=== PATIENT | female | born 1960 | race Caucasian/White ===

== ENCOUNTER → 2016-12-24 | Outpatient (CLI) | payer BC, OTHER ==
[~2016-12-24] MED LIST: ACET325T96 PO; ASPI81TA28 PO; ATOR10TA88 PO; CHOL100010 PO; CLX/20 PO; DEXT30SU8 PO; DXY100 PO; FRCT/ PO; LEVO25TA5 PO; MONT1TAB5 PO; NALT1TAB14 PO; PROB1TAB16 PO; SULF800T23 PO; ULT50X PO
[2016-12-24 18:18] LABS: THYROID STIMULATING HORMONE 1.37 uIu/ml (0.300-4.500)
== END | disposition home or self-care (01) ==
LOC: C.LABMFLN 14:41
PROVIDERS: ATTEND Family Medicine
DX: E03.9 Hypothyroidism, unspecified (principal); E55.9 Vitamin D deficiency, unspecified

== ENCOUNTER → 2017-02-18 | Outpatient (CLI) | payer BC ==
[~2017-02-18] MED LIST changes: +ATOR10TA82 PO; -ATOR10TA88 PO
[2017-02-18 12:02] LABS: HEMATOCRIT 42.5 % (37-47); MEAN CELL VOLUME 93.2 fL (80-100); MEAN CORPUSCULAR HGB CONC 34.4 g/dl (32-36); MEAN PLATELET VOLUME 9.4 fL (7.4-10.4); PLATELET COUNT 258 K/uL (130-400); RED BLOOD COUNT 4.56 M/uL (4.2-5.4); WHITE BLOOD COUNT 4.59 K/uL (4.8-10.8)
[2017-02-18 12:24] LABS: PARTIAL THROMBOPLASTIN RATIO 1.1; PROTHROMBIN TIME (PATIENT) 11.2 SECONDS (9.0-12.0)
[2017-02-18 12:50] LABS: POTASSIUM 4.2 mmol/L (3.5-5.1)
== END | disposition home or self-care (01) ==
LOC: C.CPL 11:35
PROVIDERS: ATTEND Physician Assistant
DX: Z01.810 Encounter for preprocedural cardiovascular examination (principal)

== ENCOUNTER → 2017-03-05 | Day surgery (SDC) | payer BC ==
[2017-02-20 09:44] VITALS: Ht 157.5 cm; Wt 77.3 kg
[~2017-03-05] VITALS: Ht 157.5 cm; Wt 77.3 kg
[~2017-03-05] MED LIST changes: +ACETAMINOPHEN 325 MG TAB PO PRN; +ATROPINE SULFATE 0.1 MG/ML 5ML SYR IV PRN; +BACITRACIN 50000 UNIT VIAL ONE; +BUPIVACAINE 0.25% 2.5MG/ML PF 10 ML VIAL INFIL ONE; +CEFAZOLIN 2000 MG/60 ML D5W IV SCH; +CEFAZOLIN SOD 1 GM VIAL ONE; +EpHEDrine SULFATE INJ 50 MG/ML AMP IV PRN; +FENTANYL CITRATE INJ 50 MCG/1 ML 2 ML VIAL ONE; +GENTAMICIN SULFATE 40 MG/ML 2 ML VIAL ONE; +GLYCOPYRROLATE INJ 0.2 MG/ML VIAL ONE; +LACTATED RINGER'S 1000ML 1,000 ML IV SCH; +LIDOCAINE HCL 2% 2 ML VIAL (20MG/ML) ONE; +LIDOCAINE/EPINEPHRINE 1% INJ 50 ML VIAL ONE; +METOCLOPRAMIDE HCL INJ 5 MG/ML 2 ML VIAL IV PRN; +MIDAZOLAM HCL 1 MG/ML 2ML VIAL ONE; +NEOSTIGMINE METHYLSULFATE 5 MG/5 ML SYR ONE; +ONDANSETRON INJ 2 MG/ML 2 ML VIAL IV PRN; +ONDANSETRON INJ 2 MG/ML 2 ML VIAL ONE; +OXYCODONE/ACETAMINOPHEN 5-325 TAB PO PRN; +PROPOFOL IV EMULSION 10 MG/ML 20 ML VIAL IV ONE; +SCOPOLAMINE 1.5 MG TDSY TD ONE; +SODIUM CHLORIDE 0.9% 1000ML 1,000 ML IV SCH; +SODIUM CHLORIDE 0.9% INJ 10 ML VIAL ONE; +SODIUM CHLORIDE 5% OP SOLN 15 ML BTL ONE
--- NOTE | 2017-03-05 08:44 | History & Physical Bridge - [place] ---
H&P Re-Evaluation Bridge Note: I have examined the patient, reviewed the History & Physical and in the interval since the performance of the History & Physical I have noted the following changes of clinical significance: No changes noted
--- NOTE | 2017-03-05 11:17 | [facility] Post Operative Brief Note ---
Immediate Operative Summary Operative Date March 05, 2017. Pre-Operative Diagnosis Breast implant ruture Post-Operative Diagnosis same as preop Procedure(s) Performed Bilateral Breast Implant Removal With Capsulectomy Surgeon Dr. Graham Figure Model Surgeon(s) NASIR Gordon Estimated Blood Loss 25ml Findings bilateral breast implant rupture Specimens A: Left Breast ruptured implant, capsule and scar tissue B: Right Breast ruptured implant, capsule and scar tissue Drains SHLOMO x2 Anesthesia general Complication(s) None Disposition Recovery Room / PACU
--- NOTE | 2017-03-05 11:34 | Discharge Instructions ---
Discharge Instructions Date of Service March 05, 2017. Admission Reason for Admission: For Bilat Breast Implant Removal Discharge Discharge Diagnosis / Problem: Breast Implant Rupture Discharge Goals Goal(s): Decrease discomfort Activity Recommendations Activity Limitations: per Instructions/Follow-up section ACTIVITY RECOMMENDATIONS: __Normal activities _x_No bending, lifting or straining __No driving __Driving allowed when you are off pain medications _x_Walking permitted __You should have help at home for ___ days DRESSINGS: __No dressings required _x_Keep dressings dry/in place until first office visit __Remove dressings ___ and leave dressings off __Apply ice ___ days __Remove dressings and reapply garment __Apply antibiotic ointment (Bacitracin, Neosporin, etc) to wounds 3-4 times/ day for 10 days BATHING: _x_Keep dressings dry _x_Sponge bathing permitted __Showering permitted _x_No swimming, hot tubs or soaking in a tub MEDICATIONS: Resume previous medications unless instructed otherwise by your surgeon. _x_Do not use aspirin, Motrin, Advil or Ibuprofen as these may promote bleeding. Please use Tylenol. _x_Prescription(s) provided: Pain medication was provided at your last office visit OTHER INSTRUCTIONS: _x_Record drain output 2-3 times per day SPECIAL CARE INSTRUCTIONS: * It is normal to have a mild fever after surgery. If your temperature is higher than 101.5 degrees F, please call the office at [phone]. * Constipation is a typical side effect of pain medication. An over-the- counter stool softener will help relieve this. * Leaking around surgical drains may occur and should not cause concern. Sometimes these drains become clogged. If this happens, remove the bulb and milk the clot out of the tube, then replace the bulb. * Drainage from wounds after liposuction is normal and should be expected. Garments will become soiled. You should protect furniture and bedding. This drainage should mostly subside within 2-3 days. Leave garments in place unless instructed to remove them. * If you have unusual drainage from a wound or are concerned you have an infection or have any questions or concerns, please call the office at [phone]. FOLLOW UP VISIT: If not already scheduled, please call the office, , when you return home after surgery to schedule an appointment to be seen in __2_ days. . Current Hospital Diet Patient's current hospital diet: Discharge Diet Recommended Diet: Regular Diet Procedures Procedures Performed: Bilateral Breast Implant Removal With Capsulectomy Pending Studies Studies pending at discharge: yes List of pending studies: pathology Medical Emergencies . Who to Call and When: Medical Emergencies: If at any time you feel your situation is an emergency, please call 911 immediately. . Non-Emergent Contact Non-Emergency issues call your: Primary Care Provider, Surgeon . "Provider Documentation" section prepared by Uma Henriquez. . VTE Core Measure Inpt VTE Proph given/why not?: SCD's [place] Drug Monitoring Program Search Results: no issues identified
[2017-03-05] MEDS: FENTANYL CITRATE INJ 50 MCG/1 ML 2 ML VIAL IV PRN ×4 (11:39→12:12)
--- NOTE | 2017-03-05 11:47 | Anesthesia Progress Nt - [facility] ---
Anesthesia Post Op Note Date & Time March 05, 2017 at 11:47 Vital Signs Pain Intensity: 4.0 Vital Signs Past 12 Hours Date Time Temp Pulse Resp B/P Pulse Ox O2 Delivery O2 Flow Rate FiO2 03/05/17 08:14 36.5 62 16 138/90 98 Room Air Notes Mental Status: alert / awake / arousable, participated in evaluation Pt Amnestic to Procedure: Yes Nausea / Vomiting: adequately controlled Pain: adequately controlled Airway Patency, RR, SpO2: stable & adequate BP & HR: stable & adequate Hydration State: stable & adequate Anesthetic Complications: no major complications apparent
[2017-03-05 13:31] VITALS: BP 150/86; PULSE 59; O2SAT 99
--- NOTE | 2017-03-07 12:57 | OPERATIVE REPORT ---
DATE OF OPERATION: 03/05/2017 PREOPERATIVE DIAGNOSIS: Bilateral silicone breast implant rupture. POSTOPERATIVE DIAGNOSIS: Same. PROCEDURE: Removal of bilateral ruptured breast implants with total capsulectomy. SURGEON: Dr. Angela Graham. HEALTH SPECIALIST: Uma Henriquez PA-C. ANESTHESIA: General. COMPLICATIONS: None. INDICATION FOR THE PROCEDURE: The patient is a 56-year-old female who had silicone breast implants placed approximately 30 years ago. She apparently a volunteer for breast MRI and was actually found to have bilateral intracapsular rupture noted. She was referred to me for possible implant removal. Options were discussed and ultimately, the patient elected to proceed with removal of her breast implants with consideration for staged replacement or mastopexy. BRIEF DESCRIPTION OF THE PROCEDURE: Risks, benefits, and alternatives of the procedure were explained to the patient, who agreed and signed consent. She was identified and marked in the preoperative holding area. She was brought to the operating room, where she was positioned supine and placed under anesthesia without incident. Surgical site was prepped and draped sterilely. I began with the left side. 1% lidocaine with epinephrine was used to anesthetize the planned incision. The incision was marked along the inframammary fold and included excision of the prior scar along the inframammary fold. A 15 blade scalpel was used to make the incision. The scar was passed off for pathology. The incision was deepened using electrocautery. Dissection was performed within the subcutaneous plane and breast parenchyma until the implant capsule was identified. The implant was noted to be extremely laterally displaced. The capsule appeared intact without evidence of extracapsular rupture; however, capsule did appear quite thin anteriorly over the implant. Electrocautery was used to dissect in the plane between the capsule and breast parenchyma and ultimately, the posterior aspect of the pectoralis major muscle. I performed as much capsulectomy as I could prior to opening the implanted capsule. Posterior dissection was also undertaken. Ultimately, I was unable to continue to remove the capsule and implant together and therefore, the capsule was incised. Upon incision of the capsule, there was free silicone present. This was manually removed using a lap sponge. Implant shell was removed as well. I was then able to remove the remainder of the capsule using electrocautery. Hemostasis was achieved throughout the dissection. The capsule and implant were passed off. Gloves were changed. Betadine soap was used to irrigate the pocket followed by triple antibiotic irrigation. The wound was examined for hemostasis and packed with lap sponges, which were soaked in antibiotic irrigation and Marcaine. At this point, attention was turned to the right side, where a similar procedure was undertaken. There was also noted to be an intracapsular rupture on the right side as well. Specimen was again passed off. Irrigation was performed. The wound was packed. I returned to the left side. A final inspection for hemostasis was undertaken. A 15-Iraqi Robert drain was placed in the wound bed and brought out through a separate stab incision. It was sutured into place using 3-0 nylon. Once I was satisfied with the appearance of the pocket, the wound was reapproximated using 2-0 Vicryl deep dermal sutures, 3-0 PDS superficial dermal suture, and a 3-0 Monocryl running subcuticular suture. The right side was inspected for hemostasis and a drain was placed. Wound was closed in the same manner. Dermabond was applied to both incisions. 4 x 4 gauze was placed and a surgical bra was placed as well. The patient tolerated the procedure well. She was awakened and transferred to recovery room in satisfactory condition. Uma Henriquez PA-C was present and scrubbed throughout the entire procedure and instrumental in providing retraction during dissection and assisting in simultaneous wound closure. I attest to the content of the Intraoperative Record and any orders documented therein. Any exceptions are noted below. FELIPA
== END | disposition home or self-care (01) ==
LOC: X.SURG 08:00
PROVIDERS: ATTEND Plastic Surgery
DX: T85.49XA Other mechanical complication of breast prosthesis and implant, initial encounter (principal); Z80.3 Family history of malignant neoplasm of breast; F41.9 Anxiety disorder, unspecified; M19.90 Unspecified osteoarthritis, unspecified site; R03.0 Elevated blood-pressure reading, without diagnosis of hypertension; E78.00 Pure hypercholesterolemia, unspecified; E03.9 Hypothyroidism, unspecified; E66.9 Obesity, unspecified; E55.9 Vitamin D deficiency, unspecified; F43.29 Adjustment disorder with other symptoms; N64.81 Ptosis of breast; Z90.710 Acquired absence of both cervix and uterus; Z82.49 Family history of ischemic heart disease and other diseases of the circulatory system; Z82.3 Family history of stroke; Z80.0 Family history of malignant neoplasm of digestive organs; Z83.3 Family history of diabetes mellitus; Z68.33 Body mass index [BMI] 33.0-33.9, adult; Z79.82 Long term (current) use of aspirin; E78.5 Hyperlipidemia, unspecified; J30.9 Allergic rhinitis, unspecified; G47.00 Insomnia, unspecified; Y81.2 Prosthetic and other implants, materials and accessory general- and plastic-surgery devices associated with adverse incidents

== ENCOUNTER → 2017-03-21 | Outpatient (CLI) | payer BC ==
[~2017-03-21] MED LIST changes: -ACETAMINOPHEN 325 MG TAB PO PRN; -ASPI81TA28 PO; -ATROPINE SULFATE 0.1 MG/ML 5ML SYR IV PRN; -BACITRACIN 50000 UNIT VIAL ONE; -BUPIVACAINE 0.25% 2.5MG/ML PF 10 ML VIAL INFIL ONE; -CEFAZOLIN 2000 MG/60 ML D5W IV SCH; -CEFAZOLIN SOD 1 GM VIAL ONE; -EpHEDrine SULFATE INJ 50 MG/ML AMP IV PRN; -FENTANYL CITRATE INJ 50 MCG/1 ML 2 ML VIAL ONE; -GENTAMICIN SULFATE 40 MG/ML 2 ML VIAL ONE; -GLYCOPYRROLATE INJ 0.2 MG/ML VIAL ONE; -LACTATED RINGER'S 1000ML 1,000 ML IV SCH; -LIDOCAINE HCL 2% 2 ML VIAL (20MG/ML) ONE; -LIDOCAINE/EPINEPHRINE 1% INJ 50 ML VIAL ONE; -METOCLOPRAMIDE HCL INJ 5 MG/ML 2 ML VIAL IV PRN; -MIDAZOLAM HCL 1 MG/ML 2ML VIAL ONE; -NEOSTIGMINE METHYLSULFATE 5 MG/5 ML SYR ONE; -ONDANSETRON INJ 2 MG/ML 2 ML VIAL IV PRN; -ONDANSETRON INJ 2 MG/ML 2 ML VIAL ONE; -OXYCODONE/ACETAMINOPHEN 5-325 TAB PO PRN; -PROPOFOL IV EMULSION 10 MG/ML 20 ML VIAL IV ONE; -SCOPOLAMINE 1.5 MG TDSY TD ONE; -SODIUM CHLORIDE 0.9% 1000ML 1,000 ML IV SCH; -SODIUM CHLORIDE 0.9% INJ 10 ML VIAL ONE; -SODIUM CHLORIDE 5% OP SOLN 15 ML BTL ONE
== END | disposition home or self-care (01) ==
LOC: C.LABSPEC 17:38
PROVIDERS: ATTEND Plastic Surgery
DX: T85.49XA Other mechanical complication of breast prosthesis and implant, initial encounter (principal); Y84.9 Medical procedure, unspecified as the cause of abnormal reaction of the patient, or of later complication, without mention of misadventure at the time of the procedure

== ENCOUNTER 2017-03-25 11:28 | Inpatient (IN) | payer BC ==
[~2017-03-25] VITALS: Ht 157.5 cm; Wt 72.7 kg
[~2017-03-25 11:28] MED LIST changes: -ACET325T96 PO; -DXY100 PO; -FRCT/ PO; -SULF800T23 PO; -ULT50X PO
[2017-03-25] MEDS ORDERED: MAGNESIUM HYDROXIDE SUSP 30 ML UDC PO PRN (17:00)
[2017-03-25] MEDS ORDERED: DEXTROMETHORPHAN POLYMR COMPLX 60 MG/10 ML UDP PO PRN (17:00)
--- NOTE | 2017-03-25 17:15 | History and Physical ---
History & Physical Date & Time of Service: March 25, 2017 at 17:06 Chief Complaint: Left Breast Abscess Primary Care Physician: Zahraa Gongora M.D. History of Present Illness Source: patient 56 y/o F who was sent here by Dr. Graham for developing breast abscess post- op. Pt had b/l silicone implant removal on 03/[address] rupture[address] Dr. Graham states that the R breast has been doing quite well. The L breast had drainage issues shortly after. She inserted a drain and this helped some, but still without major improvement. Pt was having increasing redness, hardness, swelling, and pain to the L breast only. Pt was started on Keflex last week, but on re-eval in the office today her L breast was noted to be no better. She was sent to the breast center prior to coming to [facility] for an US with Dr. Olea. Pt states that 200cc of fluid was removed and her pain and swelling are improved. Still present, but better. The area is less hard as well. Pt states no issues with the R breast. She has no prior hx of skin infections, nor does anyone that she lives with or has other close contact with. I specifically discussed MRSA and she states no exposure or risk for exposure that she is aware of. During this time, pt has felt fine otherwise. No issues with PO intake. Pt denies fever, SOB, chest pain, abd pain, n/v/c/d, LE pain or swelling. ROS as noted above, otherwise neg. Past Medical/Surgical History Depression Exercise induced asthma Hypothyroid Hyperlipidemia Social History Smoking Status: Never Smoker Alcohol Use: none Drug Use: none Multi-Drug Resistant Organisms History of MDRO: No Allergies Coded Allergies: Codeine (Verified Allergy, Unknown, VOMITING, 03/05/17) Erythromycin (Verified Allergy, Unknown, VOMITING, 03/05/17) Home Medications Scheduled Atorvastatin (Lipitor), 10 MG PO QPM Cholecalciferol (Vitamin D), 1 TAB PO QPM Citalopram (Citalopram Hydrobromide), 1 TAB PO QPM Levothyroxine Sodium (Levothyroxine Sodium), 1 TAB PO QAM Montelukast Sodium (Montelukast Sodium), 1 TAB PO QPM Naltrexone HCl-Bupropion HCl (Contrave 8-90 mg), 2 TABS PO BID Probiotic Product (Probiotic), 1 TAB PO QPM Scheduled PRN Dextromethorphan Polistirex (Robitussin 12 Hour Cough), 10 ML PO Q12 PRN for Cough Physical Exam General Appearance: WD/WN, no apparent distress Head: normocephalic, atraumatic Eyes: normal inspection ENT: hearing grossly normal Neck: supple Respiratory/Chest: normal breath sounds, no respiratory distress Cardiovascular: regular rate, rhythm, no edema Abdomen/GI: non tender, soft Extremities/Musculoskelatal: no calf tenderness, no pedal edema Neurologic/Psych: alert, normal mood/affect, oriented x 3 Skin: warm/dry, + pertinent finding (bandaging in place around L breast) Diagnostics Laboratory Results Results Past 24 Hours Test 03/25/17 16:59 Range/Units Impression Assessment and Plan 56 y/o F who was admitted on 03/25 for L breast abscess that failed outpt management L breast abscess: developed post-op, failed outpt drain and keflex Will avoid ceftriaxone given pt states absolutely no improvement and actual worsening of sx on keflex Erythromycin allergy, will avoid clinda Will start doxy 100mg IV and monitor CBC, PRP pending Requested records for L breast US done earlier today, pt states 200cc fluid removal Pt will be NPO after midnight in case of need for OR Hypothyroid: continue home meds HLD: continue home meds Depression: continue home meds Weight loss: pt is taking a weight loss drug for cravings called Contreva--hold for now Other: Full code Reg diet tonight, NPO after midnight Holding anticoagulation due to possible OR and good ambulation status with likely short duration of admission Level of Care Med/Surg VTE Prophylaxis VTE Risk Assessment Done? Y/N: Yes Risk Level: Low
[2017-03-25 17:34] LABS: HEMATOCRIT 38.1 % (37-47); MEAN CELL VOLUME 93.6 fL (80-100); MEAN CORPUSCULAR HEMOGLOBIN 31.9 pg (25-34); MEAN CORPUSCULAR HGB CONC 34.1 g/dl (32-36); MEAN PLATELET VOLUME 8.6 fL (7.4-10.4); PLATELET COUNT 382 K/uL (130-400); RED BLOOD COUNT 4.07 M/uL (4.2-5.4); WHITE BLOOD COUNT 8.03 K/uL (4.8-10.8)
[2017-03-25 17:49] LABS: BLOOD UREA NITROGEN 8 mg/dl (7-18); BUN/CREATININE RATIO 10.5 (10-20); CARBON DIOXIDE 27 mmol/L (21-32); CHLORIDE 106 mmol/L (98-107); CREATININE 0.75 mg/dl (0.60-1.20); GLUCOSE 95 mg/dl (70-99); POTASSIUM 3.4 mmol/L (3.5-5.1); SODIUM 141 mmol/L (136-145)
[2017-03-25 18:00] VITALS: BP 125/84; PULSE 87; TEMP 36.8; O2SAT 98; Ht 157.5 cm; Wt 72.7 kg
[2017-03-25] MEDS: MONTELUKAST SOD 10 MG TAB PO SCH (21:02)
[2017-03-25] MEDS: ATORVASTATIN 10 MG TAB PO SCH (21:02)
[2017-03-25] MEDS: TRAMADOL HCL 50 MG TAB PO PRN (21:02)
[2017-03-25] MEDS: CHOLECALCIFEROL 1000 INTER.UNIT TAB PO SCH (21:03)
[2017-03-25] MEDS: CITALOPRAM 20 MG TAB PO SCH (21:03)
[2017-03-25] MEDS: SACCHAROMYCES BOUL (FLORASTOR) 250 MG CAP PO SCH (21:03)
[2017-03-25] MEDS: DOXYCYCLINE IV 100 MG in DEXTROSE 5% 100ML 100 ML IV SCH (21:06)
[2017-03-26 00:47] VITALS: BP 115/78; PULSE 64; TEMP 36.5; O2SAT 98
--- NOTE | 2017-03-26 04:56 | CONSULTATION REPORT ---
DATE OF CONSULTATION: 03/25/2017 REASON FOR CONSULTATION: Left breast abscess. HISTORY OF PRESENT ILLNESS: Mrs. Lind is a 56-year-old female who initially presented to my office with ruptured silicone breast implants, noted incidentally on breast MRI. She presented for discussion of implant removal. We elected to proceed with removal and capsulectomy as well as placement of surgical drains. This was performed approximately 3 weeks ago. She overall had been doing fine and had her sutures removed 2 weeks postoperatively as well as had her right SHLOMO drain removed. About 1 week ago, she reported that she fell, and following this had increased output from her left drain as well as worsening pain. At that time the SHLOMO fluid was serosanguineous and we continued to observe the area. Within about 48-72 hours she was noted to have murky appearance to the SHLOMO drain fluid and I removed the drain and cultured it which grew out methicillin-sensitive staphylococcus aureus. She was started on Keflex on March 21. We checked in with her via phone March 22 and she was still experiencing some discomfort. She contacted our office this morning with concerns of redness of the breast as well as significant swelling and increasing pain. No fever was noted. She reported very scant drainage on her dressings suggesting that the SHLOMO site had closed. Her case was discussed with Dr. Olea and I recommended she have ultrasound guided aspiration. This was sent for culture and initial Gram stain shows that there is residual staph aureus present. She has been admitted to the hospitalist service for intravenous antibiotics as she has failed outpatient therapy on Keflex. She is seen now after admission at bedside and reports that her pain is significantly improved since having had the aspiration performed. PHYSICAL EXAMINATION: VITAL SIGNS: Temperature is 36.8, pulse 87, respirations 18, blood pressure 125/84, she is 98% on room air. GENERAL: She is in no distress and is nontoxic-appearing. HEART: Regular rate and rhythm. LUNGS: Clear to auscultation bilaterally. BREASTS: Examination of the left breast shows that there is still erythema extending to the marker line drawn in my office earlier today. Breast is less tender and less indurated. LABORATORY STUDIES: Show white blood cell count of 8.0, platelets 382, hemoglobin 13, creatinine 0.75. IMPRESSION: Postoperative infection 3 weeks status post removal bilateral breast implants. PLAN: Discussed with Mrs. Lind that we need to keep her in a tight-fitting bra to help prevent reaccumulation of seroma. She has been started on intravenous antibiotics by the hospitalist service. Currently, she is n.p.o. after midnight. I will reassess her in the morning to determine whether any intervention is needed. At this point as the collection has been drained, I would probably recommend observation with continued intravenous antibiotics. The seroma fluid may be the result of lymphatic drainage at this site and she was advised it may take several weeks for this to resolve. If the fluid should reaccumulate, options would include additional needle aspiration or possibly return to the operating room for irrigation and placement of a SHLOMO drain. I will reassess her in the morning. FELIPA
[2017-03-26] MEDS: LEVOTHYROXINE 25 MCG TAB PO SCH (05:48)
[2017-03-26 07:36] VITALS: BP 107/72; PULSE 63; TEMP 36.6; O2SAT 98
--- NOTE | 2017-03-26 08:04 | Progress Note ---
Progress Note Date of Service March 26, 2017. Progress Note feels ok this morning. Still with discomfort left breast afebrile VSS mild erythema, now beyond marker line tissue with expected induration no evidence for reaccumulation of seroma WBC 8 gram + cocci on culture 03/25 gram + cocci/MSSA on culture 03/21 continue IV abx per hospitalist service for now will hold off on any surgical intervention at this point as no evidence of recurrent seroma/abscess will reassess tomorrow
[2017-03-26] MEDS: DOXYCYCLINE IV 100 MG in DEXTROSE 5% 100ML 100 ML IV SCH (08:40)
[2017-03-26] MEDS ORDERED: VANCOMYCIN CONSULT ACTIVE PRN (09:15)
[2017-03-26] MEDS ORDERED: VANCOMYCIN INJ 1,800 MG in SODIUM CHLORIDE 0.9% 500ML 500 ML IV SCH (09:30)
[2017-03-26] MEDS: TRAMADOL HCL 50 MG TAB PO PRN (10:24)
--- NOTE | 2017-03-26 10:48 | Pharmacy Progress Note ---
Pharmacy Antibiotic Consult Date of Service: March 26, 2017. Pharmacy Dosing Scope Pharmacy is consulted to initiate Vancomycin IV dosing therapy, order appropriate labs and adjust drug dose/frequency. Subjective The patient is a 56 year old female admitted on March 25, 2017 at 15:35 for IV antibiotic therapy for a (L) breast abscess. She had failed an outpatient course of Keflex following b/l removal of breast implants that had ruptured. In the course of recovering the left side developed an infection in which a drain was placed, oral antibiotics where prescribed and she did not improve. Two cultures (03/21 & 03/25) grew MSSA & GPC and GPC respectively. Upon admission Dr. Green started Doxycycline and this morning Dr. Ramirez discontinued it and started Vancomycin. Objective Height (Feet): 5 Height (Inches): 2.00 Weight (Kilograms): 72.700 Lab Results (24hrs): Test 03/25/17 17:25 03/25/17 18:30 White Blood Count 8.03 K/uL (4.8-10.8) Red Blood Count 4.07 M/uL (4.2-5.4) Hemoglobin 13.0 g/dL (12.0-16.0) Hematocrit 38.1 % (37-47) Mean Corpuscular Volume 93.6 fL (80-100) Mean Corpuscular Hemoglobin 31.9 pg (25-34) Mean Corpuscular Hemoglobin Concent 34.1 g/dl (32-36) RDW Standard Deviation 45.9 fL (36.4-46.3) RDW Coefficient of Variation 13.3 % (11.5-14.5) Platelet Count 382 K/uL (130-400) Mean Platelet Volume 8.6 fL (7.4-10.4) Sodium Level 141 mmol/L (136-145) Potassium Level 3.4 mmol/L (3.5-5.1) Chloride Level 106 mmol/L (98-107) Carbon Dioxide Level 27 mmol/L (21-32) Anion Gap 8.0 mmol/L (3-11) Blood Urea Nitrogen 8 mg/dl (7-18) Creatinine 0.75 mg/dl (0.60-1.20) Estimated GFR () 102.6 Estimated GFR (Non- 88.5 BUN/Creatinine Ratio 10.5 (10-20) Random Glucose 95 mg/dl (70-99) Calcium Level 9.0 mg/dl (8.5-10.1) Hepatitis C Antibody Screen NEG (NEG) Micro Results: : 03/23/17 [facility] PAGE 1 RUN TIME: 1325 Specimen Inquiry PATIENT: DYLAN OWENS LOC: [place] U # : [id number] AGE/SX: 56/F ROOM: REG : 03/21/[address]: Angela Graham MD : 1960 BED: DIS : STATUS: REG CLI TLOC: SPEC #: [id number] OTTONIEL: 03/21/17 STATUS: COMP REQ #: [id number] RECD: 03/21/[address]: Angela Graham MD SOURCE: ASP-OTHER ENTR: 03/21/[address]: Zahraa Gongora M.D. SPDESC: BREAST ORDERED: DEP WND CUL/SMR COMMENTS: Outside Ordering Provider Comment: T85.49XA Breast implant rupture MELL Aspirate [id number] Procedure Result Verified Site GRAM STAIN Final 03/22/17-0840 RESULT FEW WBCs SEEN FEW GRAM POSITIVE COCCI DEEP WOUND CULTURE Final 03/23/17-1324 Organism 1 STAPHYLOCOCCUS AUREUS QUANITY MANY SENS SENSITIVITY TO FOLLOW 1. STAPHYLOCOCCUS AUREUS Target Route Dose RX AB Cost M.I.C. IQ ------ ----- ------ -- ------ -------- - ------ TRIMET/SULFA S <=0.5/ 9.5 * OXACILLIN S <=0.25 VANCOMYCIN S 2 ERYTHROMYCIN R >4 TETRACYCLINE S <=4 CLINDAMYCIN S <=0.5 DAPTOMYCIN S <=0.5 S = SENSITIVE I = INTERMEDIATE R = RESISTANT RUN DATE: 03/26/17 [facility] PAGE 1 RUN TIME: 838 Specimen Inquiry PATIENT: DYLAN OWENS LOC: [facility] U # : [id number] AGE/SX: 56/F ROOM: REG : 03/25/[address]: Angela Graham MD : 1960 BED: DIS : STATUS: REG CLI TLOC: SPEC #: [id number] OTTONIEL: 03/25/17 STATUS: RES REQ #: [id number] RECD: 03/25/[address]: Angela Graham MD SOURCE: ABSCESS ENTR: 03/25/[address] [facility] DR: Zahraa Gongora M.D. SPDESC: BREAST, L ORDERED: DEP DAMION CUL/SMR COMMENTS: SOURCE IS FLUID REMOVED DURING THE REMOVAL OF INFECTED LEFT BREAST IMPLANT. Procedure Result Verified Site GRAM STAIN Final 03/26/17 RESULT MANY WBCs SEEN FEW GRAM POSITIVE COCCI DEEP WOUND CULTURE Preliminary 03/26/17 Organism 1 STAPHYLOCOCCUS AUREUS QUANITY MODERATE SENS SENSITIVITY TO FOLLOW END OF REPORT Assessment & Plan Loading dose: Vancomycin 1800mg (~25mg/kg) IV X 1 dose then: Vancomycin 1000mg (~15mg/kg) IV every 8 hours thereafter. I estimated her half life just under 8 hours. I will check a trough level prior to the 0600 dose on 03/28/17. Goal trough level estimate: between 15-20 mcg/mL. Pharmacy will continue to follow and will adjust dose/frequency as necessary. Thank you
--- NOTE | 2017-03-26 11:18 | Hospitalist Progress Note ---
Hospitalist Progress Note Date of Service March 26, 2017. (Nisha Justin ., PA-C) Subjective Pt evaluation today including: conversation w/ patient, physical exam, chart review, lab review, review of inpatient medication list Voiding: no voiding problems, no incontinence Patient states she is feeling well. Drain was removed from left breast on 03/21. Since that time, breast erythema, warmth, and tenderness has continued to worsen. Today according to the patient, L breast looks improved compared to admission yesterday. Still feels fullness to breast, but no significant pain. Patient denies any fever, chills, sweats, lightheadedness, dizziness, vision changes, CP, palpitations, edema, SOB, wheezing, cough, abdominal pain, nausea, vomiting, diarrhea, urinary symptoms, melena, numbness/tingling, weakness, muscle/joint pain, anxiety/depression, active bleeding. (Nisha Justin ., PA-C) Medications Current Inpatient Medications Medications (Trade) Dose Ordered Sig/Christian Route Start Time Stop Time Status Last Admin Dose Admin Acetaminophen (Tylenol Tab) 650 mg Q4H PRN PO 03/25/17 17:00 04/24/17 16:59 Magnesium Hydroxide (Milk Of Magnesia Susp) 30 ml Q6H PRN PO 03/25/17 17:00 04/24/17 16:59 Ondansetron HCl (Zofran Inj) 4 mg Q6H PRN IV 03/25/17 17:00 04/24/17 16:59 Atorvastatin Calcium (Lipitor Tab) 10 mg QPM PO 03/25/17 21:00 04/24/17 20:59 03/25/17 21:02 10 MG Cholecalciferol (Vitamin D Tab) 1,000 inter.unit QPM PO 03/25/17 21:00 04/24/17 20:59 03/25/17 21:03 1,000 INTER.UNIT Citalopram Hydrobromide (celeXA TAB) 20 mg QPM PO 03/25/17 21:00 04/24/17 20:59 03/25/17 21:03 20 MG Dextromethorphan Polymer Complex (Delsym Susp) 60 mg Q12 PRN PO 03/25/17 17:00 04/24/17 16:59 Levothyroxine Sodium (Synthroid Tab) 25 mcg DAILYBB PO 03/26/17 06:30 04/25/17 06:29 03/26/17 05:48 25 MCG Montelukast Sodium (Singulair Tab) 10 mg QPM PO 03/25/17 21:00 04/24/17 20:59 03/25/17 21:02 10 MG Saccharomyces Boulardii (Florastor Cap) 250 mg QPM PO 03/25/17 21:00 04/24/17 20:59 03/25/17 21:03 250 MG Tramadol HCl 50 mg 50 mg Q4H PRN PO 03/25/17 19:30 04/24/17 19:29 03/26/17 10:24 50 MG Vancomycin HCl/ Sodium Chloride (Vancomycin Inj/ Nss 250ml) 270 ml @ 125 mls/hr Q8H IV 03/26/17 22:00 04/05/17 21:59 Vancomycin HCl 1 ea 1 ea UD PRN N/A 03/26/17 09:15 04/25/17 09:14 Vancomycin HCl/ Sodium Chloride (Vancomycin Inj/ Nss 500ml) 536 ml @ 200 mls/hr TODAY@0930 IV 03/26/17 09:30 03/26/17 12:11 03/26/17 10:24 200 MLS/HR (Nisha Justin, PA-C) Objective Vital Signs Date Time Temp Pulse Resp B/P Pulse Ox O2 Delivery O2 Flow Rate FiO2 03/26/17 08:00 Room Air 03/26/17 07:36 36.6 63 17 107/72 98 Room Air 03/26/17 01:01 Room Air 03/26/17 00:47 36.5 64 20 115/78 98 Room Air 03/25/17 20:21 Room Air 03/25/17 18:00 36.8 87 18 125/84 98 Room Air 03/25/17 17:30 Room Air (Nisha Justin, PA-C) Physical Exam General Appearance: no apparent distress Eyes: normal inspection, PERRL ENT: hearing grossly normal Neck: supple Respiratory/Chest: lungs clear, no respiratory distress, no accessory muscle use, + pertinent finding (left breast w/ mild erythema to lateral/lower breast; mapping marked, erythema slightly outside of markings; mild warmth noted; noted lesion on chest wall below breast- no erythema or drainage noted ) Cardiovascular: regular rate, rhythm Abdomen: normal bowel sounds, non tender, soft Extremities: no pedal edema, no calf tenderness Neurologic/Psychiatric: alert, normal mood/affect, oriented x 3 Skin: normal color, warm/dry, no rash (Nisha Justin, PA-C) Laboratory Results Last 24 Hours Test 03/25/17 17:25 03/25/17 18:30 White Blood Count 8.03 K/uL Red Blood Count 4.07 M/uL Hemoglobin 13.0 g/dL Hematocrit 38.1 % Mean Corpuscular Volume 93.6 fL Mean Corpuscular Hemoglobin 31.9 pg Mean Corpuscular Hemoglobin Concent 34.1 g/dl RDW Standard Deviation 45.9 fL RDW Coefficient of Variation 13.3 % Platelet Count 382 K/uL Mean Platelet Volume 8.6 fL Sodium Level 141 mmol/L Potassium Level 3.4 mmol/L Chloride Level 106 mmol/L Carbon Dioxide Level 27 mmol/L Anion Gap 8.0 mmol/L Blood Urea Nitrogen 8 mg/dl Creatinine 0.75 mg/dl Estimated GFR () 102.6 Estimated GFR (Non- 88.5 BUN/Creatinine Ratio 10.5 Random Glucose 95 mg/dl Calcium Level 9.0 mg/dl Hepatitis C Antibody Screen NEG (Nisha Justin, PA-C) Diagnostic Results RUN DATE: 03/26/17 [facility] LAB PAGE 1 RUN TIME: 838 Specimen Inquiry PATIENT: DYLAN OWENS LOC: [facility] U # : [id number] AGE/SX: 56/F ROOM: REG : 03/25/[address]: Angela Graham MD : 1960 BED: DIS : STATUS: REG CLI TLOC: SPEC #: [id number] OTTONIEL: 03/25/17 STATUS: RES REQ #: [id number] RECD: 03/25/[address]: Angela Graham MD SOURCE: ABSCESS ENTR: 03/25/[address]: Zahraa Gongora M.D. SPDESC: BREAST, L ORDERED: DEP WND CUL/SMR COMMENTS: SOURCE IS FLUID REMOVED DURING THE REMOVAL OF INFECTED LEFT BREAST IMPLANT. Procedure Result Verified Site GRAM STAIN Final 03/26/17 RESULT MANY WBCs SEEN FEW GRAM POSITIVE COCCI DEEP WOUND CULTURE Preliminary 03/26/17 Organism 1 STAPHYLOCOCCUS AUREUS QUANITY MODERATE SENS SENSITIVITY TO FOLLOW END OF REPORT (Nisha Justin ., PA-C) Assessment and Plan 56 y/o female who was admitted on 03/25 for L breast abscess that failed outpt management L breast abscess: developed post-op, failed outpt drain and Keflex: - Admit to med/surg - Admitted w/ IV Doxycycline 100 mg x2 doses -- d/c IV Doxycycline, add IV Vancomycin on 03/26 - ? Red man syndrome due to Vancomycin- pretreat w/ IV 25 mg Benadryl prior to Vancomycin treatments - Culture growing staph aureus- sensitives pending - Follow CBC and PRP - Tramadol q4 hrs PRN - Consulted Dr. Merchant, appreciate recommendations Mild hypokalemia: Follow PRP, replace PRN Hypothyroidism: Synthroid 25 mcg daily HLD: Lipitor 10 mg daily Depression: Continue Citalopram 20 mg daily Weight loss: pt is taking a weight loss drug for cravings called Contreva-- hold for now GI Prophylaxis: Maalox PRN, IV Zofran PRN, Colace and/or Milk of Mag PRN DVT Prophylaxis: Ambulation Code Status: LEVEL I, FULL Dispo: Discharge to home once medically stable- no discharge needs anticipated (Nisha Justin ., PA-C) Attending Attestation: Pt seen/examined, chart reviewed, care plan d/w MICHI Justin. I agree w/ the vivas components of her documentation. This am, while vanco was being infused, top of head and forehead became red. Did not have hives. States lips felt "funny" briefly. All symptoms/signs promptly resoled with benadryl only. During my visit her face, lips, throat, head - all normal. She believes left breast is improved today. Less pain & swelling. VSS no fever gen - nad face - no erythema or angioedema skin - no hives on any skin surface heart - RRR lungs - CTA b/l left breast - chaperoned by nursing staff - minimal erythema of the breast abscess site covered w/ band-aid this was removed the abscess site is still indurated and swollen but not fluctuant A/P: left breast abscess 2nd to staph aureus, final Id/sens pending probable "red man syndrome" due to vancomycin; doubt systemic reaction/allergy cont IV vanco pending final culture result defer any further surgical intervention of breast to Dr. Santos huff IV prior to vanco infusion and slow infusion rate Champ RAMIREZ MD (Marco Ramirez MD)
[2017-03-26] MEDS: ACETAMINOPHEN 325 MG TAB PO PRN ×2 (12:08→21:21)
[2017-03-26] MEDS ORDERED: NURSING VERBAL MED ORDER ONE (12:45)
[2017-03-26] MEDS ORDERED: DiphenhydrAMINE HCL 50 MG/ML VIAL IV ONE (13:00)
[2017-03-26] MEDS ORDERED: DiphenhydrAMINE INJ 25 MG in SYRINGE 0 ML IV SCH (14:00)
[2017-03-26 15:13] VITALS: BP 116/77; PULSE 78; TEMP 36.4; O2SAT 94
--- NOTE | 2017-03-26 17:32 | Progress Note ---
Progress Note Date of Service March 26, 2017. Progress Note came by to reassess patient- she is doing well. Reports reaction to Vancomycin earlier, improved after Benadryl afebrile VSS signicant decrease in erythema left breast still with induration/erythema inferiorly continue abx for now no plans for surgical intervention at present may need additional percutaneous drainage if reaccumulation of seroma fluid will reassess tomorrow
[2017-03-26] MEDS: ATORVASTATIN 10 MG TAB PO SCH (21:20)
[2017-03-26] MEDS: SACCHAROMYCES BOUL (FLORASTOR) 250 MG CAP PO SCH (21:20)
[2017-03-26] MEDS: CHOLECALCIFEROL 1000 INTER.UNIT TAB PO SCH (21:20)
[2017-03-26] MEDS: MONTELUKAST SOD 10 MG TAB PO SCH (21:20)
[2017-03-26] MEDS: CITALOPRAM 20 MG TAB PO SCH (21:20)
[2017-03-26] MEDS: DiphenhydrAMINE HCL 50 MG/ML VIAL IV PRN (22:10)
[2017-03-26] MEDS: VANCOMYCIN INJ 1,000 MG in SODIUM CHLORIDE 0.9% 250ML 250 ML IV SCH (22:40)
[2017-03-26] MEDS ORDERED: DiphenhydrAMINE HCL 50 MG/ML VIAL IV PRN (23:00)
[2017-03-27] MEDS: TRAMADOL HCL 50 MG TAB PO PRN ×2 (00:04→16:35)
[2017-03-27 00:19] VITALS: BP 128/81; PULSE 78; TEMP 37.4; O2SAT 96
[2017-03-27] MEDS ORDERED: NURSING VERBAL MED ORDER ONE ×2 (00:45→18:30)
[2017-03-27] MEDS: ONDANSETRON INJ 2 MG/ML 2 ML VIAL IV PRN ×3 (00:48→17:10)
[2017-03-27] MEDS: MoRPHine SULFATE 2 MG/ML CARP IV PRN ×3 (01:43→15:26)
[2017-03-27] MEDS: LEVOTHYROXINE 25 MCG TAB PO SCH (06:28)
[2017-03-27] MEDS: DiphenhydrAMINE HCL 50 MG/ML VIAL IV PRN ×3 (06:28→22:08)
[2017-03-27 06:40] LABS: HEMATOCRIT 37.6 % (37-47); MEAN CELL VOLUME 93.3 fL (80-100); MEAN CORPUSCULAR HGB CONC 33.2 g/dl (32-36); MEAN PLATELET VOLUME 8.6 fL (7.4-10.4); PLATELET COUNT 365 K/uL (130-400); RED BLOOD COUNT 4.03 M/uL (4.2-5.4); WHITE BLOOD COUNT 7.25 K/uL (4.8-10.8)
[2017-03-27 07:10] LABS: BUN/CREATININE RATIO 11.4 (10-20); CALCIUM 8.7 mg/dl (8.5-10.1); CREATININE 0.85 mg/dl (0.60-1.20)
[2017-03-27] MEDS: VANCOMYCIN INJ 1,000 MG in SODIUM CHLORIDE 0.9% 250ML 250 ML IV SCH ×4 (07:23→22:09)
[2017-03-27 07:42] VITALS: BP 126/83; PULSE 69; TEMP 36.7; O2SAT 97
--- NOTE | 2017-03-27 10:09 | DIAGNOSTIC IMAGING REPORT ---
BREAST LIMITED UNILATERAL ULTRASOUND CLINICAL HISTORY: Left breast abscess. Cellulitis. COMPARISON STUDY: Left breast ultrasound 03/25/2017. FINDINGS: Within the 4:00 location of the left breast there is a 8.4 x 4.3 cm slightly complex fluid collection. IMPRESSION: An 8.4 x 4.3 cm slightly complex fluid collection within the left breast. This may represent an abscess. Electronically signed by: Bhavesh Hu M.D. 03/27/2017 10:08 AM Dictated Date/Time: 03/27/2017 10:06 AM
--- NOTE | 2017-03-27 11:05 | Progress Note ---
Progress Note Date of Service March 27, 2017. (Uma Henriquez ., PA-C) Progress Note Patient seen in AM- she is doing well. Reports fatigue and not sleeping, but offers no concerns afebrile VSS signicant decrease in erythema left breast still with induration/erythema inferiorly continue abx for now and will recheck ultrasound to reassess seroma no plans for surgical intervention at present may need additional percutaneous drainage if reaccumulation of seroma fluid will examine patient with Dr. Graham later today (Uma Henriquez ., PA-C) patient seen and examined at bedside afebrile overnight erythema left breast improved, still with some induration ultrasound findings noted case discussed with Dr. Puentes; collection amenable to aspiration/catheter placement in radiology this was discussed with patient, she agrees to proceed (Angela Graham MD)
--- NOTE | 2017-03-27 12:48 | Hospitalist Progress Note ---
Hospitalist Progress Note Date of Service March 27, 2017. (Nisha Justin ., NASIR) Subjective Pt evaluation today including: conversation w/ patient, physical exam, chart review, lab review, review of studies, review of inpatient medication list Voiding: no voiding problems, no incontinence Patient states she is feeling well. No fever/chills. L breast feels improved. Patient denies any fever, chills, sweats, lightheadedness, dizziness, vision changes, CP, palpitations, edema, SOB, wheezing, cough, abdominal pain, nausea, vomiting, diarrhea, urinary symptoms, melena, numbness/tingling, weakness, muscle/joint pain, anxiety/depression, active bleeding, or new skin discoloration/changes. (Nisha Justin ., NYASIAC) Medications Current Inpatient Medications Medications (Trade) Dose Ordered Sig/Christian Route Start Time Stop Time Status Last Admin Dose Admin Acetaminophen (Tylenol Tab) 650 mg Q4H PRN PO 03/25/17 17:00 04/24/17 16:59 03/26/17 21:21 650 MG Magnesium Hydroxide (Milk Of Magnesia Susp) 30 ml Q6H PRN PO 03/25/17 17:00 04/24/17 16:59 Ondansetron HCl (Zofran Inj) 4 mg Q6H PRN IV 03/25/17 17:00 04/24/17 16:59 03/27/17 07:23 4 MG Atorvastatin Calcium (Lipitor Tab) 10 mg QPM PO 03/25/17 21:00 04/24/17 20:59 03/26/17 21:20 10 MG Cholecalciferol (Vitamin D Tab) 1,000 inter.unit QPM PO 03/25/17 21:00 04/24/17 20:59 03/26/17 21:20 1,000 INTER.UNIT Citalopram Hydrobromide (celeXA TAB) 20 mg QPM PO 03/25/17 21:00 04/24/17 20:59 03/26/17 21:20 20 MG Dextromethorphan Polymer Complex (Delsym Susp) 60 mg Q12 PRN PO 03/25/17 17:00 04/24/17 16:59 Levothyroxine Sodium (Synthroid Tab) 25 mcg DAILYBB PO 03/26/17 06:30 04/25/17 06:29 03/27/17 06:28 25 MCG Montelukast Sodium (Singulair Tab) 10 mg QPM PO 03/25/17 21:00 04/24/17 20:59 03/26/17 21:20 10 MG Saccharomyces Boulardii (Florastor Cap) 250 mg QPM PO 03/25/17 21:00 04/24/17 20:59 03/26/17 21:20 250 MG Tramadol HCl 50 mg 50 mg Q4H PRN PO 03/25/17 19:30 04/24/17 19:29 03/27/17 00:04 50 MG Vancomycin HCl/ Sodium Chloride (Vancomycin Inj/ Nss 250ml) 270 ml @ 125 mls/hr Q8H IV 03/26/17 22:00 04/05/17 21:59 03/27/17 07:23 125 MLS/HR Vancomycin HCl (Consult) 1 ea UD PRN N/A 03/26/17 09:15 04/25/17 09:14 Diphenhydramine HCl (Benadryl Inj) 25 mg Q8H PRN IV 03/26/17 22:00 04/25/17 21:59 03/27/17 06:28 25 MG Morphine Sulfate (MoRPHine SULFATE INJ) 1 mg Q4H PRN IV 03/27/17 01:45 04/10/17 01:44 03/27/17 07:23 1 MG (Nihsa Justin, PA-C) Objective Vital Signs Date Time Temp Pulse Resp B/P Pulse Ox O2 Delivery O2 Flow Rate FiO2 03/27/17 08:00 Room Air 03/27/17 07:42 36.7 69 18 126/83 97 Room Air 03/27/17 00:19 37.4 78 20 128/81 96 Room Air 03/27/17 00:00 Room Air 03/26/17 20:00 Room Air 03/26/17 16:00 Room Air 03/26/17 15:13 36.4 78 18 116/77 94 Room Air (Nisha Justin, PA-C) Physical Exam General Appearance: no apparent distress Eyes: normal inspection, PERRL ENT: hearing grossly normal Neck: supple Respiratory/Chest: lungs clear, no respiratory distress, no accessory muscle use, + pertinent finding (L breast with mild erythema within markings; noted indurated area; mild warmth ) Cardiovascular: regular rate, rhythm Abdomen: normal bowel sounds, non tender, no organomegaly Extremities: no pedal edema, no calf tenderness Neurologic/Psychiatric: alert, normal mood/affect, oriented x 3 Skin: normal color, warm/dry, no rash (Nisha Justin ., NASIR) Laboratory Results Last 24 Hours Test 03/27/17 06:19 White Blood Count 7.25 K/uL Red Blood Count 4.03 M/uL Hemoglobin 12.5 g/dL Hematocrit 37.6 % Mean Corpuscular Volume 93.3 fL Mean Corpuscular Hemoglobin 31.0 pg Mean Corpuscular Hemoglobin Concent 33.2 g/dl RDW Standard Deviation 46.0 fL RDW Coefficient of Variation 13.3 % Platelet Count 365 K/uL Mean Platelet Volume 8.6 fL Sodium Level 142 mmol/L Potassium Level 4.0 mmol/L Chloride Level 108 mmol/L Carbon Dioxide Level 28 mmol/L Anion Gap 6.0 mmol/L Blood Urea Nitrogen 10 mg/dl Creatinine 0.85 mg/dl Est Creatinine Clear Calc Drug Dose 68.2 ml/min Estimated GFR () 88.2 Estimated GFR (Non- 76.1 BUN/Creatinine Ratio 11.4 Random Glucose 107 mg/dl Calcium Level 8.7 mg/dl (Nisha Justin .NASIR) Diagnostic Results BREAST LIMITED UNILATERAL ULTRASOUND CLINICAL HISTORY: Left breast abscess. Cellulitis. COMPARISON STUDY: Left breast ultrasound 03/25/2017. FINDINGS: Within the 4:00 location of the left breast there is a 8.4 x 4.3 cm slightly complex fluid collection. IMPRESSION: An 8.4 x 4.3 cm slightly complex fluid collection within the left breast. This may represent an abscess. Electronically signed by: Bhavesh Hu M.D. 03/27/2017 10:08 AM Dictated Date/Time: 03/27/2017 10:06 AM The status of this report is Signed. Draft = Not yet reviewed or approved by Radiologist. Signed = Reviewed and approved by Radiologist. (Nisha Justin PA-C) Assessment and Plan 56 y/o female who was admitted on 03/25 for L breast abscess that failed outpt management L breast abscess: developed post-op, failed outpt drain and Keflex: - Admit to med/surg - Admitted w/ IV Doxycycline 100 mg x2 doses -- d/c IV Doxycycline, add IV Vancomycin on 03/26 - ? Red man syndrome due to Vancomycin- pretreat w/ IV 25 mg Benadryl prior to Vancomycin treatments - Culture growing staph aureus- sensitives reviewed, will continue IV antibiotics while inpatient and transition to PO at discharge - Follow CBC and PRP - Tramadol q4 hrs PRN - Consulted Dr. Graham, appreciate recommendations -- US- 8.4 x 4.3 cm slightly complex fluid collection within the left breast. This may represent an abscess. -- Collection amenable to aspiration/catheter placement in radiology per plastic surgery's note on 03/27 Mild hypokalemia- RESOLVED: Follow PRP, replace PRN Hypothyroidism: Synthroid 25 mcg daily HLD: Lipitor 10 mg daily Depression: Continue Citalopram 20 mg daily Weight loss: pt is taking a weight loss drug for cravings called Contreva-- hold for now GI Prophylaxis: Maalox PRN, IV Zofran PRN, Colace and/or Milk of Mag PRN DVT Prophylaxis: Ambulation Code Status: LEVEL I, FULL Dispo: Discharge to home once medically stable- no discharge needs anticipated (Nisha Justin ., PA-C) Attending Attestation: Pt seen/examined, chart reviewed, care plan d/w MICHI Justin. I agree w/ the vivas components of her documentation. Had I/D w/ drain placement to left breast abscess today. She now has severe, pounding, bifrontal headache. Has h/o migraines. No generalized rash. No further red man reactions w/ pretreatment of benadryl. VSS no fever gen - nad face - no erythema or angioedema skin - no hives on any skin surface heart - RRR lungs - CTA b/l abd - soft psych - anxious A/P: left breast abscess 2nd to staph aureus (MSSA) s/p I/D x 2 this week probable "red man syndrome" due to vancomycin migraine headache toradol with zofran now for migraine can use fioricet or triptan if headache is refractory vanco IV for now; if d/c home tomorrow then transition to PO abx according to sensitivities Champ RAMIREZ MD (Marco Ramirez MD)
[2017-03-27 15:30] VITALS: BP 129/85; PULSE 72; TEMP 36.5; O2SAT 99
--- NOTE | 2017-03-27 15:42 | DIAGNOSTIC IMAGING REPORT ---
ULTRASOUND GUIDED LEFT BREAST ABSCESS DRAINAGE HISTORY: Left breast infected seroma PROCEDURE: Written informed consent was obtained. Preliminary imaging of the left breast was performed to determine a safe needle injury site. 1% lidocaine was used for local anesthesia. A small skin neck was made within the left lower quadrant of the breast. Under ultrasound guidance a 6 English Flexima catheter was inserted into the left breast abscess. The catheter was locked in place. A [address] stopcock and a drainage bag was attached to the catheter. A total of 100 cc of pus was aspirated from the cavity. The cavity was drained to near completion. The patient was transported back to the floor in stable condition. No immediate complications. IMPRESSION: Successful ultrasound-guided left breast abscess drainage with placement of a 6 English Flexima catheter. Electronically signed by: Bhavesh Hu M.D. 03/27/2017 3:41 PM Dictated Date/Time: 03/27/2017 3:38 PM
[2017-03-27] MEDS: SODIUM CHLORIDE 0.9% 10ML FLUSH IV SCH (16:15)
[2017-03-27] MEDS ORDERED: KETOROLAC TROMETHAMINE 30 MG/ML VIAL IV PRN (18:30)
[2017-03-27] MEDS ORDERED: BUTALBITAL/ACETAMIN/CAFFEINE TAB PO PRN (18:30)
[2017-03-27] MEDS ORDERED: ONDANSETRON INJ 2 MG/ML 2 ML VIAL IV ONE (18:45)
[2017-03-27] MEDS ORDERED: LORAZEPAM 0.5 MG TAB PO STA (20:02)
[2017-03-27] MEDS: CITALOPRAM 20 MG TAB PO SCH (20:14)
[2017-03-27] MEDS: SACCHAROMYCES BOUL (FLORASTOR) 250 MG CAP PO SCH (20:14)
[2017-03-27] MEDS: ATORVASTATIN 10 MG TAB PO SCH (20:14)
[2017-03-27] MEDS: MONTELUKAST SOD 10 MG TAB PO SCH (20:15)
[2017-03-27] MEDS: CHOLECALCIFEROL 1000 INTER.UNIT TAB PO SCH (20:15)
[2017-03-27 23:55] VITALS: BP 125/79; PULSE 69; TEMP 36.5; O2SAT 98
[2017-03-28] MEDS: SODIUM CHLORIDE 0.9% 10ML FLUSH IV SCH ×2 (03:17→15:26)
[2017-03-28] MEDS ORDERED: VANCOMYCIN TROUGH SCH (05:30)
[2017-03-28 05:43] LABS: HEMATOCRIT 36.7 % (37-47); MEAN CELL VOLUME 94.3 fL (80-100); MEAN CORPUSCULAR HEMOGLOBIN 31.4 pg (25-34); MEAN CORPUSCULAR HGB CONC 33.2 g/dl (32-36); MEAN PLATELET VOLUME 8.8 fL (7.4-10.4); PLATELET COUNT 317 K/uL (130-400); RED BLOOD COUNT 3.89 M/uL (4.2-5.4); WHITE BLOOD COUNT 4.46 K/uL (4.8-10.8)
[2017-03-28 06:10] LABS: CALCIUM 8.6 mg/dl (8.5-10.1); CREATININE 0.66 mg/dl (0.60-1.20); POTASSIUM 3.7 mmol/L (3.5-5.1)
[2017-03-28] MEDS: LEVOTHYROXINE 25 MCG TAB PO SCH (06:56)
[2017-03-28 08:07] VITALS: BP 126/80; PULSE 61; TEMP 36.6; O2SAT 95
[2017-03-28] MEDS ORDERED: VANCOMYCIN INJ 1,200 MG in SODIUM CHLORIDE 0.9% 250ML 250 ML IV SCH (11:00)
[2017-03-28] MEDS ORDERED: FRCT/ PO (11:06)
[2017-03-28] MEDS ORDERED: ULT50X PO (11:06)
[2017-03-28] MEDS ORDERED: ACET325T96 PO (11:06)
[2017-03-28] MEDS: DiphenhydrAMINE HCL 50 MG/ML VIAL IV PRN (11:07)
--- NOTE | 2017-03-28 11:18 | Discharge Instructions ---
Discharge Instructions Date of Service March 28, 2017. Admission Reason for Admission: Left Breast Abscess Discharge Discharge Diagnosis / Problem: Left breast abscess Discharge Goals Goal(s): Decrease discomfort, Diagnostic testing, Therapeutic intervention, Prevent Disease Progression Activity Recommendations Activity Limitations: resume your previous activity . Instructions / Follow-Up Instructions / Follow-Up Take Bactrim 1 tablet by mouth twice per day until prescription is completed This medication is an antibiotic used to treat your left breast abscess ( infection) It is important you complete entire course of antibiotic therapy You may take Tramadol 50 mg by mouth every 4 hours as needed for left breast pain management. You may take Tylenol 325-650 mg by mouth every 4 hours as needed for additional pain management. Additionally, you may take Tylenol (as described above) as needed for headache- please follow-up with your PCP to further discuss/evaluate/and management your headaches Do NOT exceed more than 4g (4000 mg) of Tylenol per day Resume all other regular home medications as prescribed Please follow-up with your PCP within 5-7 days Please follow-up with Plastic surgery as instructed by Dr. Graham. Please follow their recommendations regarding left breast care. Please follow-up/keep all of your subspecialty appointments Current Hospital Diet Patient's current hospital diet: Regular Diet Discharge Diet Recommended Diet: Regular Diet Procedures Procedures Performed: Left ultrasound-guided breast abscess drainage Pending Studies Studies pending at discharge: yes List of pending studies: Abscess drainage sensitives Laboratory Results Last 24 Hours Test 03/28/17 05:32 White Blood Count 4.46 K/uL Red Blood Count 3.89 M/uL Hemoglobin 12.2 g/dL Hematocrit 36.7 % Mean Corpuscular Volume 94.3 fL Mean Corpuscular Hemoglobin 31.4 pg Mean Corpuscular Hemoglobin Concent 33.2 g/dl RDW Standard Deviation 47.0 fL RDW Coefficient of Variation 13.6 % Platelet Count 317 K/uL Mean Platelet Volume 8.8 fL Sodium Level 145 mmol/L Potassium Level 3.7 mmol/L Chloride Level 111 mmol/L Carbon Dioxide Level 27 mmol/L Anion Gap 7.0 mmol/L Blood Urea Nitrogen 7 mg/dl Creatinine 0.66 mg/dl Est Creatinine Clear Calc Drug Dose 87.8 ml/min Estimated GFR () 113.7 Estimated GFR (Non- 98.1 BUN/Creatinine Ratio 11.0 Random Glucose 87 mg/dl Calcium Level 8.6 mg/dl Vancomycin Level Trough 21.1 mcg/ml Medical Emergencies . Who to Call and When: Medical Emergencies: If at any time you feel your situation is an emergency, please call 911 immediately. . Non-Emergent Contact Non-Emergency issues call your: Primary Care Provider . . "Provider Documentation" section prepared by Nisha Justin. . VTE Core Measure Inpt VTE Proph given/why not?: Albert Singh, ANTONIA's
--- NOTE | 2017-03-28 11:34 | Discharge Summary ---
Discharge Summary Date of Service March 28, 2017. (Nisha Justin PA-C) Discharge Summary Admission Date: March 25, 2017 at 15:35 Discharge Date: March 28, 2017 Discharge Disposition: Home with services Principal Diagnosis: Left breast abscess Problems/Secondary Diagnoses: L breast abscess ? Red man syndrome due to Vancomycin Headache Mild hypokalemia Hypothyroidism HLD Depression Procedures: ULTRASOUND GUIDED LEFT BREAST ABSCESS DRAINAGE HISTORY: Left breast infected seroma PROCEDURE: Written informed consent was obtained. Preliminary imaging of the left breast was performed to determine a safe needle injury site. 1% lidocaine was used for local anesthesia. A small skin neck was made within the left lower quadrant of the breast. Under ultrasound guidance a 6 Taiwanese Flexima catheter was inserted into the left breast abscess. The catheter was locked in place. A 3 way stopcock and a drainage bag was attached to the catheter. A total of 100 cc of pus was aspirated from the cavity. The cavity was drained to near completion. The patient was transported back to the floor in stable condition. No immediate complications. IMPRESSION: Successful ultrasound-guided left breast abscess drainage with placement of a 6 [place]ese Flexima catheter. Electronically signed by: Bhavesh Hu M.D. 03/27/2017 3:41 PM Dictated Date/Time: 03/27/2017 3:38 PM The status of this report is Signed. Draft = Not yet reviewed or approved by Radiologist. Signed = Reviewed and approved by Radiologist. BREAST LIMITED UNILATERAL ULTRASOUND CLINICAL HISTORY: Left breast abscess. Cellulitis. COMPARISON STUDY: Left breast ultrasound 03/25/2017. FINDINGS: Within the 4:00 location of the left breast there is a 8.4 x 4.3 cm slightly complex fluid collection. IMPRESSION: An 8.4 x 4.3 cm slightly complex fluid collection within the left breast. This may represent an abscess. Electronically signed by: Bhavesh Hu M.D. 03/27/2017 10:08 AM Dictated Date/Time: 03/27/2017 10:06 AM The status of this report is Signed. Draft = Not yet reviewed or approved by Radiologist. Signed = Reviewed and approved by Radiologist. Consultations: Plastic surgery (Nisha Justin PA-C) Medication Reconciliation New Medications: Sulfa/Trimethoprim (Bactrim Ds 800MG/160MG) Tab 1 TAB PO BID for 6 Days, #12 TAB Acetaminophen Tab (Tylenol) 325 Mg Tab 650 MG PO Q4H PRN for Pain or Fever, #30 TAB Tramadol HCl (Tramadol HCl) 50 Mg Tab 50 MG PO Q4H PRN for Pain for 3 Days, #12 TAB Continued Medications: Atorvastatin (Lipitor) 10 Mg Tab 10 MG PO QPM Cholecalciferol (Vitamin D) 1,000 Unit Tab 1 TAB PO QPM Citalopram (Citalopram Hydrobromide) 20 Mg Tab 1 TAB PO QPM Dextromethorphan Polistirex (Robitussin 12 Hour Cough) 30 Mg/5 Ml Annette 10 ML PO Q12 PRN for Cough Levothyroxine Sodium (Levothyroxine Sodium) 25 Mcg Tab 1 TAB PO QAM Montelukast Sodium (Montelukast Sodium) 10 Mg Tab 1 TAB PO QPM Naltrexone HCl-Bupropion HCl (Contrave 8-90 mg) 1 Tab Tab 2 TABS PO BID Probiotic Product (Probiotic) 1 Tab Tab 1 TAB PO QPM Referrals At Discharge Follow up Referrals: Family Practice Referral - Within 1 Week with Zahraa Gongora M.D. Discharge Exam Review of Systems: Constitutional: No chills, No fatigue, No fever, No sweats, No weakness Respiratory: No cough, No hemoptysis, No shortness of breath Cardiovascular: No chest pain, No edema, No palpitations Abdomen: No GI bleeding, No constipation, No diarrhea, No nausea, No pain, No vomiting Musculoskeletal: No calf pain, No joint pain, No muscle pain, No swelling Genitourinary - Female: No dysuria, No hematuria Neurologic: No numbness/tingling, No weakness Psychiatric: No anxiety, No depression symptoms Hematologic / Lymphatic: No abnormal bleeding/bruising Integumentary: No itch, No new/changing skin lesions, No rash Physical Exam: General Appearance: no apparent distress Eyes: normal inspection, PERRL ENT: hearing grossly normal Neck: supple Respiratory/Chest: lungs clear, no respiratory distress, no accessory muscle use, + pertinent finding (L breast drain in place ) Cardiovascular: regular rate, rhythm Abdomen / GI: normal bowel sounds, non tender, soft Extremities: no calf tenderness, no pedal edema Neurologic/Psychiatric: alert, normal mood/affect, oriented x 3 Skin: normal color, warm/dry, no rash (Murarik, Nisha ., PA-C) Hospital Course 56 y/o female who was admitted on 03/25 for L breast abscess that failed outpt management L breast abscess: developed post-op, failed outpt drain and Keflex: - Admit to med/surg - Admitted w/ IV Doxycycline 100 mg x2 doses -- d/c IV Doxycycline, add IV Vancomycin on 03/26 - ? Red man syndrome due to Vancomycin- pretreat w/ IV 25 mg Benadryl prior to Vancomycin treatments - Culture growing staph aureus- sensitives reviewed -- Transition to PO Bactrim BID at discharge to complete 10 day course - Follow CBC and PRP - Tramadol q4 hrs PRN- given script for 3 days for PRN pain management - Consulted Dr. Graham, appreciate recommendations- OK for discharge, f/u in office scheduled -- US- 8.4 x 4.3 cm slightly complex fluid collection within the left breast. This may represent an abscess. -- US-guided left breast abscess drainage w/ catheter placement on 03/27 -- Cultures obtained- staph aureus, sensitives pending Headache: - IV Toradol PRN and Fioricet PRN w/ good pain control- -- Was going to discharge patient w/ Fioricet PRN, but interaction noted w/ Contrave and Fioricet- instructed patient to use Tylenol PRN and f/u w/ PCP Mild hypokalemia- RESOLVED: Follow PRP, replace PRN Hypothyroidism: Synthroid 25 mcg daily HLD: Lipitor 10 mg daily Depression: Continue Citalopram 20 mg daily Weight loss: pt is taking a weight loss drug for cravings called Contrave-- resume at discharge GI Prophylaxis: Maalox PRN, IV Zofran PRN, Colace and/or Milk of Mag PRN DVT Prophylaxis: Ambulation Code Status: LEVEL I, FULL Dispo: Discharge to home w/ [facility] to manage left breast drain Total Time Spent: Greater than 30 minutes This includes examination of the patient, discharge planning, medication reconciliation, and communication with other providers. (Nisha Justin ., PA-C) Attending Discharge Note & Attestation: Pt seen/examined, chart reviewed, care plan d/w MICHI Justin on day of discharge. I agree w/ the vivas components of her discharge summary. 56yo female with left breast abscess, s/p I & D as an outpatient and ultimately growing Methicillin-sensitive staph aureus (MSSA). She was admitted due to failure of the abscess to improve with oral antibiotic therapy. While hospitalized she received IV antibiotics and also had another I/D of the abscess. Following the I/D she had a catheter placed into the abscess cavity. She will discharge to home with the catheter left in place and take bactrim twice daily for the infection. Home health services have been arranged and she will follow-up with Dr. Graham as scheduled. exam: gen - nad heart - RRR lungs - CTA b/l abd - soft, NT ext - no edema chest - left breast - catheter in place, no overlying erythema on the breast itself (exam chaperoned by staff member) Marco Ramirez MD (Marco Ramirez MD) Discharge Instructions Please refer to the electronic Patient Visit Report (Discharge Instructions) for additional information. (Nisha Justin ., PA-C) Follow-Up Please follow-up with your PCP within 5-7 days Please follow-up with Plastic Surgery as instructed by Dr. Graham Please follow-up/keep all of your subspecialty appointments (Nisha Justin, PA-C) Dr. Graham on SaturdayApril 03 at 1:00 pm (Marco Ramirez MD) Additional Copies To Zahraa Gongora M.D.
[2017-03-28] MEDS ORDERED: DXY100 PO (11:35)
--- NOTE | 2017-03-28 12:10 | Discharge Instructions ---
Discharge Instructions Date of Service March 28, 2017. Admission Reason for Admission: Left Breast Abscess Discharge Discharge Diagnosis / Problem: left breast abscess Discharge Goals Goal(s): Decrease discomfort Activity Recommendations Activity Limitations: per Instructions/Follow-up section Flush with saline via sideport of stopcock q 12 hours. Use 10cc. Flush into abscess cavity and let it drain into bag, then flush distally into bag. . Instructions / Follow-Up Instructions / Follow-Up FOR HOME NURSE: Flush with saline via sideport of stopcock q 12 hours. Use 10cc. Flush into abscess cavity and let it drain into bag, then flush distally into bag. Current Hospital Diet Patient's current hospital diet: Regular Diet Discharge Diet Recommended Diet: Regular Diet Procedures Procedures Performed: Left ultrasound-guided breast abscess drainage Pending Studies Studies pending at discharge: no Medical Emergencies . Who to Call and When: Medical Emergencies: If at any time you feel your situation is an emergency, please call 911 immediately. . Non-Emergent Contact Non-Emergency issues call your: Surgeon . "Provider Documentation" section prepared by Uma Henriquez. . VTE Core Measure Inpt VTE Proph given/why not?: Albert Singh, SCD's
--- NOTE | 2017-03-28 12:43 | Progress Note ---
Progress Note Date of Service March 28, 2017. Progress Note Patient seen in AM- she is doing well. States her procedure went well yesterday. She c/o headache last night that is now resolved afebrile VSS signicant decrease in erythema left breast. Induration resolved Drain located left lateral breast. drianage in bag is thick and appears infected continue abx for now. likely d/c home today on PO antibiotics Patient will need home care for drain- flush q12 hours via sideport with normal saline. Instructions provided in d/c summary no plans for surgical intervention at present patient was discussed with Dr. Graham. She reviewed patient with radiology and medicine and plan is to d/c home today. She will f/u in our office
[2017-03-28 15:09] VITALS: BP 130/74; PULSE 66; TEMP 36.9; O2SAT 98
[2017-03-28] MEDS ORDERED: SULF800T23 PO (15:17)
[2017-03-28 15:47] VITALS: BP 130/74; PULSE 66; TEMP 36.9; O2SAT 98
[2017-03-29] MEDS ORDERED: VANCOMYCIN TROUGH SCH (10:30)
--- NOTE | 2017-04-10 12:06 | EDITING REQUIRED CODING QUERY ---
CODING QUERY Dear Dr. Ramirez, To promote full compliance with coding requirements relating to patient care, provider participation is requested in all cases of music sound light technician uncertainty. Please assist us with the question(s) below: Coding Question(s): Was the Left breast Abscess due to the following? Please apple all that apply with a (x) in the parentheses: Was the Left Breast Abscess due to: ( x ) Complication from removal of left breast implant ( ) Complication of ruptured silicone implant ( ) Complication of both the removal of the left implant and the rupture of the silicone implant ( ) Other: Please explain. ( ) Unable to determine Physician's Response(s): Thank you for your time. Jacy Liu [facility] Principal Diagnosis: "_that condition established after study, to be chiefly responsible for occasioning the admission of the patient to the hospital for care." Co-Existing Principal Diagnosis: "_when two or more diagnoses equally meet the criteria for principal diagnosis as determined by the circumstances of admission, diagnostic work up, and/or therapy provided, and the Alphabetic Index, Tabular List, or another coding guideline does not provide sequencing direction, any one of the diagnoses may be sequenced first." "When the physician has documented what appears to be a current diagnosis in the body of the record, but has not included the diagnosis in the final diagnostic statement, the physician should be asked whether the diagnosis should be added." ([facility] 2 QTR90. p3-4)
== END 2017-03-28 16:30 | disposition home health service (06) | DRG 920 ==
LOC: C.MS2W 15:35
PROVIDERS: ADMIT Family Medicine; ATTEND Internal Medicine
PROC: 0H9U00Z Drainage of Left Breast with Drainage Device, Open Approach (ICD-10-PCS; principal; 2017-03-27)
DX: L76.34 Postprocedural seroma of skin and subcutaneous tissue following other procedure (principal); T85.79XA Infection and inflammatory reaction due to other internal prosthetic devices, implants and grafts, initial encounter; N61.1 Abscess of the breast and nipple; A49.01 Methicillin susceptible Staphylococcus aureus infection, unspecified site; Y83.4 Other reconstructive surgery as the cause of abnormal reaction of the patient, or of later complication, without mention of misadventure at the time of the procedure; Y92.234 Operating room of hospital as the place of occurrence of the external cause; E03.9 Hypothyroidism, unspecified; E78.5 Hyperlipidemia, unspecified; F32.9 Major depressive disorder, single episode, unspecified; G43.909 Migraine, unspecified, not intractable, without status migrainosus; E87.6 Hypokalemia; T36.8X5A Adverse effect of other systemic antibiotics, initial encounter; J45.909 Unspecified asthma, uncomplicated; L26 Exfoliative dermatitis; Z79.899 Other long term (current) drug therapy

== ENCOUNTER → 2017-03-25 | Outpatient (CLI) | payer BC ==
--- NOTE | 2017-03-26 07:54 | MAMMOGRAPHY REPORT ---
ASPIRATION LEFT BREAST: 03/25/2017 CLINICAL HISTORY: 55 year old woman with recent breast implant removal with concern for infected ser oli versus abscess in the left breast. She presents for percutaneous aspiration/drainage. COMPARISON: Comparison is made to exams dated: 03/25/2017 ultrasound, 07/02/2016 mammogram, 07/01/2015 mammogram, 06/29/2014 mammogram, 06/25/2013 mammogram, and 06/18/2012 mammogram - [facility]. PATIENT CONSENT: After explaining the risks, benefits and alternatives of the procedure to the patie nt, informed consent was obtained verbally and in writing. Specific risks include: bleeding, infecti on and puncture of adjacent structure. A time out was preformed in the left breast was agreed as the site for ultrasound-guided aspiration. PROCEDURE DESCRIPTION: The skin of the lower outer quadrant of the left breast was cleansed with Bet adine. 1% buffered lidocaine without epinephrine was administered subcutaneously and intraparenchym ally as local anesthesia. A 22-gauge needle attached to tubing and a 20 mL syringe was advanced and inserted into the anechoic fluid collection. Aspiration was performed and 11 mL of blood-tinged cl oudy whitish fluid were aspirated. This sample was sent to the pathology department for cultures an d sensitivity. Then an 18-gauge needle with attached tubing and 20 mL syringe was advanced within the hypoechoic fl uid collection and additional fluid was aspirated. In total approximately 195 mL of pinkish whitish cloudy fluid were aspirated from the left lower outer quadrant. During the procedure, the fluid co llection was documented to be significantly decreasing in size, with only a thin layer of fluid pres ent at the end of the procedure, as seen on the final ultrasound images (69). The patient tolerated the procedure well and there was no immediate complication. A small Band-Aid was placed over the needle puncture site. After leaving our department she went to the hospital to be admitted for IV antibiotics. IMPRESSION: ASPIRATION Status post aspiration to resolution of the fluid collection in the left lower outer quadrant, with removal of approximately 195 mL of pinkish-whitish cloudy fluid. Renetta Olea M.D. ay/:03/25/2017 15:59:39 Machine Tailer: Madyson Mckay, [facility]
--- NOTE | 2017-03-26 07:56 | MAMMOGRAPHY REPORT ---
ULTRASOUND OF LEFT BREAST: 03/25/2017 CLINICAL HISTORY: 56 year-old woman with recent bilateral subpectoral implant removal with concern f or left breast infected seroma versus abscess. COMPARISON: Comparison is made to exams dated: 07/02/2016 mammogram, 07/01/2015 mammogram, 06/29/2014 mammogram, 06/25/2013 mammogram, 06/18/2012 mammogram, and 06/15/2011 mammogram - [facility]. FINDINGS: Targeted ultrasound was performed throughout the lower outer quadrant and inferior left b reast deep to an area of skin erythema and pain. There is a large hypoechoic to anechoic fluid triny ection approximately 2 cm deep to the dermis. The posterior border/wall of the fluid collection is noted visualized well due to posterior shadowing. This makes accurate measurement with ultrasound d ifficult, particularly given that the fluid collection is larger than the [id number]. This colle ction is amenable to ultrasound-guided cyst aspiration/drainage which was performed during the same visit. Please refer to a separate report for full detail. IMPRESSION: ACR BI-RADS CATEGORY 2: BENIGN There is a large fluid collection within the lower outer quadrant of the left breast that is amenabl e to percutaneous cyst aspiration/drainage. Please refer to a separate report for full detail. Renetta Olea M.D. ay/:03/25/2017 15:52:59 Medical Historian: Dr. Renetta Olea, [facility] BI-RADS Code: ACR BI-RADS Category 2: Benign
== END | disposition home or self-care (01) ==
LOC: C.MAMM 13:32
PROVIDERS: ATTEND Plastic Surgery
DX: N61.1 Abscess of the breast and nipple (principal)

== ENCOUNTER → 2017-08-21 | Outpatient (CLI) | payer BC ==
[~2017-08-21] MED LIST changes: +ACET325T96 PO; -ATOR10TA82 PO; +ATOR10TA88 PO; +ULT50X PO
[2017-08-21 13:32] LABS: ALT/SGPT 27 U/L (12-78); AST/SGOT 17 U/L (15-37); BLOOD UREA NITROGEN 24 mg/dl (7-18); BUN/CREATININE RATIO 28.2 (10-20); CALCIUM 8.9 mg/dl (8.5-10.1); CARBON DIOXIDE 24 mmol/L (21-32); CHLORIDE 107 mmol/L (98-107); CREATININE 0.84 mg/dl (0.60-1.20); GLUCOSE 86 mg/dl (70-99); POTASSIUM 4.2 mmol/L (3.5-5.1); SODIUM 138 mmol/L (136-145)
[2017-08-21 13:36] LABS: BASO % 0.9 %; BASO ABS # 0.04 K/uL (0-0.2); COMPLETE YES; EOS % 2.7 %; HEMATOCRIT 41.7 % (37-47); IG% 0.2 %; LYMPH % 33.6 %; LYMPH ABS # 1.51 K/uL (1.2-3.4); MEAN CELL VOLUME 92.3 fL (80-100); MEAN CORPUSCULAR HEMOGLOBIN 31.4 pg (25-34); MEAN CORPUSCULAR HGB CONC 34.1 g/dl (32-36); MEAN PLATELET VOLUME 9.3 fL (7.4-10.4); MONO % 8.2 %; NEUT % 54.4 %; PLATELET COUNT 286 K/uL (130-400); RED BLOOD COUNT 4.52 M/uL (4.2-5.4); WHITE BLOOD COUNT 4.49 K/uL (4.8-10.8)
[2017-08-21 13:40] LABS: ALB/GLOB RATIO 1.1 (0.9-2); ALKALINE PHOSPHATASE 94 U/L (45-117); CHOLESTEROL 166 mg/dl (0-200); CHOLESTEROL/HDL RATIO 2.3; HDL CHOLESTEROL 71 mg/dl; LDL CHOLESTEROL CALCULATED 72 mg/dl; TRIGLYCERIDES 116 mg/dl (0-150); VERY LOW DENSITY LIPOPROT CALC 23 mg/dl
== END | disposition home or self-care (01) ==
LOC: C.LABMFLN 08:35
PROVIDERS: ATTEND Family Medicine
DX: F41.9 Anxiety disorder, unspecified (principal); E78.5 Hyperlipidemia, unspecified; E03.9 Hypothyroidism, unspecified

== ENCOUNTER → 2017-10-25 | Outpatient (CLI) | payer BC ==
[~2017-10-25] MED LIST changes: +ATOR10TA82 PO; -ATOR10TA88 PO
== END | disposition home or self-care (01) ==
LOC: C.PATH 14:07
PROVIDERS: ATTEND Dermatology
DX: L82.0 Inflamed seborrheic keratosis (principal)

== ENCOUNTER → 2018-03-10 | Outpatient (CLI) | payer BC ==
[~2018-03-10] MED LIST changes: +ACET-1693 PO; -ACET325T96 PO
--- NOTE | 2018-03-11 15:14 | MAMMOGRAPHY REPORT ---
BILATERAL DIGITAL SCREENING MAMMOGRAM TOMOSYNTHESIS WITH CAD: 03/10/2018 CLINICAL HISTORY: Routine screening. Patient has no complaints. TECHNIQUE: Breast tomosynthesis in addition to standard 2D mammography was performed. Current study was also evaluated with a Computer Aided Detection (CAD) system. COMPARISON: Comparison is made to exams dated: 07/02/2016 mammogram, 07/01/2015 mammogram, 06/29/2014 m ammogram, 06/25/2013 mammogram, 06/18/2012 mammogram, and 05/31/2010 mammogram - [facility] enter. BREAST COMPOSITION: The tissue of both breasts is heterogeneously dense, which may obscure small mas ses. FINDINGS: Bilateral subpectoral silicone implants have been removed since the prior mammograms dated 07/02/2016. There is a stable intramammary lymph node in the posterior right breast along the posteri or nipple line on the CC view. No suspicious mass, architectural distortion or cluster of microcalci fications is seen. IMPRESSION: ACR BI-RADS CATEGORY 1: NEGATIVE There is no mammographic evidence of malignancy. A 1 year screening mammogram is recommended. The pa tient will receive written notification of the results. Approximately 10% of breast cancers are not detected with mammography. A negative mammographic report should not delay biopsy if a clinically suggestive mass is present. Renetta Olea M.D. ay/:03/10/2018 16:18:06 Equipment Engineer: Luda DILLARD)([place]), [facility] letter sent: Normal 1/2 BI-RADS Code: ACR BI-RADS Category 1: Negative
== END | disposition home or self-care (01) ==
LOC: C.MAMM 14:00
PROVIDERS: ATTEND Family Medicine
DX: Z12.31 Encounter for screening mammogram for malignant neoplasm of breast (principal)